=== PATIENT | female | born 1955 | race Caucasian/White ===

== ENCOUNTER 2020-09-20 18:48 | Emergency (ER) | payer BC ==
[2020-09-20] MEDS ORDERED: BISOPROLOL FUMA1 TAB PO (19:19)
[2020-09-20 20:26] LABS: EOS % 0.1 % (1.0-5.0); HEMOGLOBIN 13.8 g/dL (12.5-16.0); LYMPH# 1.3 (1.50-4.00); MEAN CELL VOLUME 82 fl (78-100); MEAN CORPUSCULAR HEMOGLOBIN 28 pg (27-31); MEAN CORPUSCULAR HGB CONC 34 g/dL (33-37); MEAN PLATELET VOLUME 8.6 fl (7.4-10.4); MONO # 0.5 (0.20-0.80); NEU # 6.7 (1.40-6.50); PLATELET COUNT 307 K/mm3 (130-400); RED BLOOD COUNT 4.98 M/mm3 (4.10-5.30); RED CELL DISTRIBUTION WIDTH 13.2 % (11.5-14.5); WHITE BLOOD COUNT 8.6 K/mm3 (4.8-10.8)
[2020-09-20 20:35] LABS: ALBUMIN 3.9 g/dL (3.4-4.8); POTASSIUM 3.2 mmol/L (3.5-5.1)
[2020-09-20 20:36] LABS: CALCIUM 8.8 mg/dL (8.3-10.5)
[2020-09-20 20:38] LABS: TOTAL PROTEIN 7.3 g/dL (6.2-8.1)
[2020-09-20 20:39] LABS: TOTAL BILIRUBIN 0.6 mg/dL (0.2-1.2)
[2020-09-20 23:00] LABS: URINE APPEARANCE CLOUDY; URINE BILIRUBIN NEGATIVE (NEGATIVE); URINE BLOOD 250 ery/uL (NEGATIVE); URINE COLOR YELLOW; URINE GLUCOSE NEGATIVE (NEGATIVE); URINE KETONE 2+ (NEGATIVE); URINE LEUKOCYTE ESTERASE 2+ (NEGATIVE); URINE NITRATE NEGATIVE (NEGATIVE); URINE PROTEIN(semi-quant) TRACE mg/dL (NEGATIVE); URINE UROBILINOGEN NORMAL (NORMAL); URINE WBC 16-30 /hpf (0-3)
[2020-09-21] MEDS ORDERED: POTASSIUM CH2 MEQ/ML PO (01:12)
[2020-09-21] MEDS ORDERED: CEFDINIR300 MG PO (01:15)
[2020-09-21] MEDS ORDERED: ONDANSETRON ODT8 MG PO (01:15)
[2020-09-21 04:06] VITALS: BP 179/88
== END 2020-09-21 02:16 | disposition home or self-care (01) ==
LOC: ED 18:48
PROVIDERS: Nurse Practitioner Family
DX: R11.2 Nausea with vomiting, unspecified (principal); E87.6 Hypokalemia; N39.0 Urinary tract infection, site not specified; R19.7 Diarrhea, unspecified; I95.1 Orthostatic hypotension; I10 Essential (primary) hypertension; Z20.822 Contact with and (suspected) exposure to COVID-19
CPT/HCPCS: J0696; J1885; J3480; J7120